=== PATIENT | male | born 1945 | race Caucasian/White ===

== ENCOUNTER 2018-11-01 11:24 | Emergency (ER) | payer MEDICARE ==
[~2018-11-01] VITALS: Ht 185.4 cm; Wt 99.8 kg
[2018-11-01 12:03] LABS: BASOPHILS ABSOLUTE AUTO 0.03 K/mm3 (0.00-0.23); BASOPHILS PERCENT AUTO 1 % (0-2); EOSINOPHILS ABSOLUTE AUTO 0.05 K/mm3 (0.00-0.68); EOSINOPHILS PERCENT AUTO 1 % (0-6); Hematocrit 37.7 % (37.0-53.0); Hemoglobin 12.5 g/dL (13.5-17.5); IMMATURE GRAN PERCENT AUTO 0 % (0-1); LYMPHOCYTES ABSOLUTE AUTO 0.86 K/mm3 (0.84-5.20); LYMPHOCYTES PERCENT AUTO 23 % (21-46); MONOCYTES ABSOLUTE AUTO 0.63 K/mm3 (0.16-1.47); MONOCYTES PERCENT AUTO 17 % (4-13); Mean Corpuscular HGB 31.4 pg (26.0-34.0); Mean Corpuscular HGB Conc 33.2 g/dL (31.5-36.5); Mean Corpuscular Volume 95 fL (80-100); Mean Platelet Volume 10.6 fL (9.1-12.4); NEUTROPHILS ABSOLUTE AUTO 2.23 K/mm3 (1.96-9.15); NEUTROPHILS PERCENT AUTO 59 % (41-73); Platelet Count 167 K/mm3 (150-400); RDW Coefficient Variation 12.5 % (11.7-14.2); RDW Standard Deviation 43.4 fL (35.1-46.3); Red Blood Cell Count 3.98 M/mm3 (4.30-5.90)
[2018-11-01 12:27] LABS: Alanine Aminotransfer (ALT/SGP 43 U/L (12-78); Albumin, Blood 4.2 g/dL (3.4-5.0); Albumin/Globulin Ratio 1.1 (0.8-1.8); Alk Phos 88 U/L (50-136); Anion Gap 10 mmol/L (6-16); Aspartate Aminotrans (AST/SGOT 51 U/L (12-37); Bilirubin, Total 0.6 mg/dL (0.1-1.0); Blood Urea Nitrogen 27 mg/dL (8-24); CO2, Blood 21 mmol/L (21-32); Chloride, Blood 108 mmol/L (98-108); Creatinine, Blood 1.42 mg/dL (0.60-1.20); Globulin, Blood 3.8 g/dL (2.2-4.0); Glomerular Filtration Rate 52 (60-); Glucose, Blood 112 mg/dL (70-99); Potassium, Blood 3.8 mmol/L (3.5-5.5); Sodium, Blood 139 mmol/L (136-145); Troponin I <0.015 ng/mL (0.000-0.040)
[2018-11-01 12:42] LABS: Influenza A Positive (NEGATIVE); Influenza B Negative (NEGATIVE)
[2018-11-01] MEDS ORDERED: Tamiflu75 MG PO (12:53)
== END 2018-11-01 13:55 | disposition home or self-care (01) ==
LOC: ER 11:24
PROVIDERS: Physician Assistant
DX: J10.1 Influenza due to other identified influenza virus with other respiratory manifestations (principal); I10 Essential (primary) hypertension; E86.0 Dehydration; N17.9 Acute kidney failure, unspecified; E78.5 Hyperlipidemia, unspecified; Z87.891 Personal history of nicotine dependence
CPT/HCPCS: 71046; 80053; 83880; 84484; 85025; 87804; 93005; 93010; 96360; 99284-25; J7030

== ENCOUNTER 2018-11-06 11:03 | Emergency (ER) | payer MEDICARE ==
[~2018-11-06] VITALS: Ht 185.4 cm; Wt 97.5 kg
[~2018-11-06 11:03] MED LIST: Tamiflu75 MG PO
[2018-11-06] MEDS ORDERED: Cheratussin AC118 ML PO (12:07)
[2018-11-06] MEDS ORDERED: SPACE CHAMBER1 EACH INH (12:07)
[2018-11-06] MEDS ORDERED: Zithromax250 MG PO (12:07)
[2018-11-06] MEDS ORDERED: ALBU90OI INH (12:07)
== END 2018-11-06 12:24 | disposition home or self-care (01) ==
LOC: ER 11:03
DX: J18.9 Pneumonia, unspecified organism (principal); I10 Essential (primary) hypertension; E78.5 Hyperlipidemia, unspecified; Z79.899 Other long term (current) drug therapy
CPT/HCPCS: 71046; 94640; 99283-25

== ENCOUNTER → 2018-12-30 | Outpatient (CLI) | payer MEDICARE ==
[~2018-12-30] MED LIST changes: +ALBU90OI INH; +Cheratussin AC118 ML PO; +SPACE CHAMBER1 EACH INH; +Zithromax250 MG PO
[2018-12-30 13:20] LABS: Stool Occult Bld Immuno 1 Negative (NEGATIVE); Stool Occult Bld Immuno 2 Negative (NEGATIVE); Stool Occult Bld Immuno 3 Negative (NEGATIVE)
== END | disposition home or self-care (01) ==
LOC: LAB SHORT 07:45 → LAB 07:45 → LAB FUT 12-26 14:25 → EDSTATUS 12-26 14:25
PROVIDERS: Family Medicine
DX: D64.9 Anemia, unspecified (principal)
CPT/HCPCS: 82274

== ENCOUNTER → 2020-08-04 | Outpatient (CLI) | payer MEDICARE ==
[2020-08-04 12:24] LABS: Source, Urine Clean Catch
[2020-08-04 13:46] LABS: Appearance, Urine Cloudy (Clear); Bilirubin, Urine Neg (Neg); Blood, Urine 4+ (Neg); Color, Urine Yellow (P-Yellow); Glucose Qualitative, Urine Neg (Neg); Ketones, Urine Neg (Neg); Leukocyte Esterase, Urine 3+ (Neg); Nitrite, Urine Neg (Neg); Protein, Urine 4+ (Neg); Urobilinogen, Urine NORM (Normal)
[2020-08-04 14:07] LABS: Bacteria Many /hpf; Squamous Epithelial Cells Rare /hpf (Few); White Blood Cells, Urine TNTC /hpf (0-5)
== END ==
LOC: LAB 12:17 → LAB SHORT 12:17
PROVIDERS: Urology
DX: R33.8 Other retention of urine (principal)
CPT/HCPCS: 81001; 87077; 87086; 87186

== ENCOUNTER → 2022-01-31 | Outpatient (CLI) | payer MEDICARE | END | disposition home or self-care (01) | LOC: LAB SHORT 11:47 → PLD 11:47 | DX: R59.1 Generalized enlarged lymph nodes (principal) | CPT/HCPCS: 88173 ==

== ENCOUNTER 2022-02-08 12:00 | Day surgery (SDC) | payer MEDICARE ==
[~2022-02-08] VITALS: Ht 182.9 cm; Wt 95.8 kg
[2022-02-08] MEDS ORDERED: HYDCHL25 (12:52)
[2022-02-08] MEDS ORDERED: LOSA50 (12:52)
[2022-02-08] MEDS ORDERED: ATOR20 (12:53)
[2022-02-08] MEDS ORDERED: Flomax0.4 MG (12:54)
== END 2022-02-08 15:20 | disposition home or self-care (01) ==
LOC: ORSCSDS 12:00
PROVIDERS: Otolaryngology
PROC: 0CBPXZZ Excision of Tonsils, External Approach (ICD-10-PCS; principal; 2022-02-08 14:00)
DX: C09.9 Malignant neoplasm of tonsil, unspecified (principal); B97.7 Papillomavirus as the cause of diseases classified elsewhere; J35.8 Other chronic diseases of tonsils and adenoids; R59.1 Generalized enlarged lymph nodes; Z87.891 Personal history of nicotine dependence; I10 Essential (primary) hypertension; Z79.899 Other long term (current) drug therapy
CPT/HCPCS: 88304; 88305; 88342; A9270; J1100; J2250; J2405; J2704; J3010

== ENCOUNTER → 2024-05-22 | Outpatient (CLI) | payer MEDICARE ==
[~2024-05-22] MED LIST changes: +ATOR20; +Flomax0.4 MG; +HYDCHL25; +LOSA50
[2024-05-22 12:18] LABS: Source, Urine Voided
[2024-05-22 13:34] LABS: Appearance, Urine Cloudy (Clear); Bilirubin, Urine Neg (Neg); Blood, Urine 2+ (Neg); Color, Urine Yellow (P-Yellow); Glucose Qualitative, Urine Neg (Neg); Ketones, Urine Neg (Neg); Leukocyte Esterase, Urine 3+ (Neg); Nitrite, Urine Neg (Neg); Protein, Urine 2+ (Neg); Specific Gravity, Urine 1.015 (1.003-1.022); Urobilinogen, Urine NORM (Normal)
[2024-05-22 13:46] LABS: White Blood Cells, Urine TNTC /hpf (0-5)
[2024-05-22 13:47] LABS: Bacteria Few /hpf; Squamous Epithelial Cells Not Seen /hpf (Few)
== END ==
LOC: LAB 12:14 → LAB SHORT 12:14
PROVIDERS: Physician Assistant
DX: N40.1 Benign prostatic hyperplasia with lower urinary tract symptoms (principal); R33.8 Other retention of urine
CPT/HCPCS: 81001; 87077; 87086; 87186

== ENCOUNTER → 2024-10-31 | Outpatient (CLI) | payer MEDICARE ==
[2024-10-31 09:35] LABS: Source, Urine Clean Catch
[2024-10-31 11:18] LABS: Appearance, Urine Cloudy (Clear); Bilirubin, Urine Neg (Neg); Blood, Urine 4+ (Neg); Color, Urine Yellow (P-Yellow); Glucose Qualitative, Urine Neg (Neg); Ketones, Urine Neg (Neg); Leukocyte Esterase, Urine 3+ (Neg); Nitrite, Urine Neg (Neg); Protein, Urine 3+ (Neg); Urobilinogen, Urine NORM (Normal)
[2024-10-31 11:36] LABS: White Blood Cells, Urine 50-100 /hpf (0-5)
[2024-10-31 11:37] LABS: Bacteria Many /hpf; Red Blood Cells, Urine 25-50 /hpf (0-2); Squamous Epithelial Cells Not Seen /hpf (Few)
== END ==
LOC: LAB 07:13 → LAB SHORT 07:13 → LAB FUT 10-30 15:15
PROVIDERS: Physician Assistant
DX: N39.0 Urinary tract infection, site not specified (principal)
CPT/HCPCS: 81001; 87077; 87086; 87186

== ENCOUNTER → 2025-02-26 | Outpatient (CLI) | payer MEDICARE ==
[2025-02-26 10:36] LABS: Source, Urine Clean Catch
[2025-02-26 15:10] LABS: Bilirubin, Urine Neg (Neg); Color, Urine Yellow (P-Yellow); Glucose Qualitative, Urine Neg (Neg); Ketones, Urine Neg (Neg); Leukocyte Esterase, Urine 1+ (Neg); Protein, Urine 2+ (Neg); Specific Gravity, Urine 1.020 (1.003-1.022); Urobilinogen, Urine NORM (Normal)
== END ==
LOC: LAB SHORT 09:30 → LAB 09:30 → LAB FUT 12-17 11:30
PROVIDERS: Urology
DX: N40.1 Benign prostatic hyperplasia with lower urinary tract symptoms (principal)
CPT/HCPCS: 81001; 87077; 87086; 87186

== ENCOUNTER 2025-03-13 08:30 | Emergency (ER) | payer MEDICARE ==
[~2025-03-13] VITALS: Ht 182.9 cm; Wt 79.4 kg
[2025-03-13] MEDS ORDERED: Cipro500 MG PO (08:58)
[2025-03-13] MEDS ORDERED: EUTHYROX50 MC1 PO (08:58)
[2025-03-13 09:35] LABS: BASOPHILS ABSOLUTE AUTO 0.07 K/mm3 (0.00-0.23); BASOPHILS PERCENT AUTO 1 % (0-2); EOSINOPHILS ABSOLUTE AUTO 0.11 K/mm3 (0.00-0.68); EOSINOPHILS PERCENT AUTO 2 % (0-6); Hematocrit 33.8 % (37.0-53.0); Hemoglobin 11.4 g/dL (13.5-17.5); IMMATURE GRAN ABSOLUTE AUTO 0.01 K/mm3 (0.00-0.10); IMMATURE GRAN PERCENT AUTO 0 % (0-1); LYMPHOCYTES ABSOLUTE AUTO 1.13 K/mm3 (0.84-5.20); LYMPHOCYTES PERCENT AUTO 22 % (21-46); MONOCYTES ABSOLUTE AUTO 0.43 K/mm3 (0.16-1.47); MONOCYTES PERCENT AUTO 8 % (4-13); Mean Corpuscular HGB Conc 33.7 g/dL (31.5-36.5); Mean Corpuscular Volume 98 fL (80-100); NEUTROPHILS ABSOLUTE AUTO 3.36 K/mm3 (1.96-9.15); NEUTROPHILS PERCENT AUTO 66 % (41-73); NRBC ABSOLUTE 0.00 K/mm3 (0.00-0.02); NRBC Auto 0.0 /100 WBC (0.0-0.2); Platelet Count 171 K/mm3 (150-400); RDW Coefficient Variation 12.3 % (11.7-14.2); RDW Standard Deviation 44.2 fL (35.1-46.3)
[2025-03-13 09:48] LABS: Alanine Aminotransfer (ALT/SGP 36.0 U/L (12-78); Albumin, Blood 4.0 g/dL (3.4-5.0); Albumin/Globulin Ratio 1.1 (0.8-1.8); Anion Gap 10.0 mmol/L (3-11); Aspartate Aminotrans (AST/SGOT 34.0 U/L (12-37); Bilirubin, Total 0.7 mg/dL (0.1-1.0); Blood Urea Nitrogen 38.0 mg/dL (8-24); CO2, Blood 18.0 mmol/L (21-32); Calcium, Blood 8.8 mg/dL (8.5-10.1); Chloride, Blood 116.0 mmol/L (98-108); Creatinine, Blood 2.05 mg/dL (0.60-1.20); Globulin, Blood 3.7 g/dL (2.2-4.0); Glucose, Blood 110.0 mg/dL (70-99); Potassium, Blood 4.6 mmol/L (3.5-5.5); Sodium, Blood 139.0 mmol/L (136-145); Total Protein, Blood 7.7 g/dL (6.4-8.2)
[2025-03-13] MEDS ORDERED: ELIQUIS2.5 MG PO (10:21)
[2025-03-13 10:41] VITALS: BP 151/82
== END 2025-03-13 10:44 | disposition home or self-care (01) ==
LOC: ER 08:30
PROVIDERS: Physician Assistant
DX: I48.91 Unspecified atrial fibrillation (principal); I10 Essential (primary) hypertension; E78.5 Hyperlipidemia, unspecified; Z79.899 Other long term (current) drug therapy
CPT/HCPCS: 80053; 85025; 93005; 93010; 99285-25

== ENCOUNTER → 2025-04-29 | Outpatient (CLI) | payer MEDICARE ==
[~2025-04-29] MED LIST changes: +Cipro500 MG PO; +ELIQUIS2.5 MG PO; +EUTHYROX50 MC1 PO
[2025-04-29 17:30] LABS: Bilirubin, Urine Neg (Neg); Color, Urine Yellow (P-Yellow); Glucose Qualitative, Urine Neg (Neg); Ketones, Urine Neg (Neg); Leukocyte Esterase, Urine 1+ (Neg); Protein, Urine 2+ (Neg); Specific Gravity, Urine 1.015 (1.003-1.022); Urobilinogen, Urine NORM (Normal)
[2025-04-29 17:55] LABS: White Blood Cells, Urine 25-50 /hpf (0-5)
== END ==
LOC: LAB 14:42 → LAB SHORT 14:42
PROVIDERS: Physician Assistant
DX: N40.1 Benign prostatic hyperplasia with lower urinary tract symptoms (principal)
CPT/HCPCS: 81001; 87077; 87086; 87186